=== PATIENT | male | born 1965 | race Native Hawaiian/Other Pacific Islander ===

== ENCOUNTER 2020-10-13 15:07 | Emergency (ER) | payer MEDICARE ==
[2020-10-13 15:33] VITALS: BP 141/75
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
--- NOTE | 2020-10-13 16:56 | Cat Scan Report ---
Exam: CT cervical spine History: Ground-level fall head injury dazed; Technique: Contiguous thin cut axial images obtained through the cervical spine. Sagittal and shane l reconstructions performed by the technologist. All CT scans at this location are performed using CT dose reduction for ALARA by means of automated exposure control. Findings: No priors. There is no evidence of fracture or traumatic subluxation. Vertebral bodies are normal in height and alignment. Intervertebral disc spaces: C2-C3, C3-C4 C4-C5: Small midline disc bulge; neuroforamina are normal C5-C6 and C6-C7: Anterior cervical disc fusion with hardware; full osseous integration; neuroforamina are normal; ossification of the interspinous ligament posteriorly at C6-C7 disc level and in the mid portion at C5-C6 disc level C7-T1: Normal No significant degenerative change seen in the uncinate or facet joints. No significant canal stenosi s or osseous foraminal narrowing. Surrounding soft tissues are grossly normal. Impression: No signs of acute bony trauma to the cervical spine. Signer Name: Marianne Quintanilla MD Signed: 10/13/2020 4:51 PM Workstation Name: [id number]
--- NOTE | 2020-10-13 16:59 | Cat Scan Report ---
NONENHANCED CT SCAN OF THE HEAD: INDICATION / CLINICAL INFORMATION: 55 years Male; Ground-level fall head injury dazed. TECHNIQUE: Routine CT head without contrast. All CT scans at this location are performed using CT dos e reduction for ALARA by means of automated exposure control. COMPARISON: None. FINDINGS: BRAIN / INTRACRANIAL CONTENTS: No intracranial sequela from the trauma; no scalp hematoma; no air-flu id level in the visualized portions of the paranasal sinuses. No acute hemorrhage, mass effect, midline shift, hydrocephalus, or acute, large territorial infarct. No chronic infarct or focal atrophy. Normal brain volume and ventricular/sulcal size for age. No sig nificant white matter abnormality. CRANIOCERVICAL JUNCTION: No significant abnormality. ORBITS: No significant abnormality of visualized orbits. SINUSES / MASTOIDS: No significant abnormality of the visualized paranasal sinuses or mastoid air kevin ls. ADDITIONAL FINDINGS: None. IMPRESSION: No intracranial sequela from the trauma Signer Name: Marianne Quintanilla MD Signed: 10/13/2020 4:55 PM Workstation Name: [id number]
== END 2020-10-13 17:58 | disposition home or self-care (01) ==
LOC: ED 15:07
DX: S09.90XA Unspecified injury of head, initial encounter (principal); E11.9 Type 2 diabetes mellitus without complications; F17.200 Nicotine dependence, unspecified, uncomplicated; Z79.899 Other long term (current) drug therapy; W07.XXXA Fall from chair, initial encounter; Y93.89 Activity, other specified; Y92.89 Other specified places as the place of occurrence of the external cause; Y99.8 Other external cause status
CPT/HCPCS: 70450; 72125; 99283